=== PATIENT | female | born 1985 | race Hispanic/Latino ===

== ENCOUNTER 2023-01-05 14:41 | Emergency (ER) | payer SELFPAY ==
--- NOTE | ~2023-01-05 | US_ITS ---
EXAMINATION: US OB <=14 wk fetus w TV INDICATION: vaginal bleeding TECHNIQUE: Sonography of the pelvis was performed by transabdominal and transvaginal techniques. COMPARISON: None. RESULT: Uterus: Orientation: Anteverted. 9.1 x 4.5 x 5.1 cm. Myometrium: homogeneous echogenicity. Gestation: - Intrauterine gestational sac: Not seen. - Embryo: Not seen. Right ovary: 2.9 x 2.0 x 1.9 cm. Normal sonographic appearance with physiologic follicles. . Small ovarian cyst versus dominant follicle. Left ovary: 2.9 x 2.0 x 1.9 cm. Normal sonographic appearance with physiologic follicles. . Simple cyst versus dominant follicle. Corpus luteal cyst. Pelvis free fluid: None. IMPRESSION: No intrauterine gestational sac identified. In the setting of a positive beta hCG, this represents a of unknown location. Heterogeneous material and fluid in the endometrial cavity, likely rep resenting hemorrhage, as can be seen with in progress loss. Retained products of conception not excluded. Recommend close clinical and sonographic follow-up. Reviewed, dictated and finalized at location [facility]. IMPRESSION: No intrauterine gestational sac identified. In the setting of a positive beta h CG, this represents a of unknown location. Heterogeneous material and fluid in the endometrial cavity, likely representing hemorrhage, as can be see n with in progress loss. Retained products of conception not excluded . Recommend close clinical and sonographic follow-up.
[2023-01-05 14:51] VITALS: BP 141/73; PULSE 66; RESP 16; TEMP 37.3; O2SAT 100
[2023-01-05 15:09] LABS: Basophils Absolute Auto 0.1 K/mm3 (0.0-0.1); Basophils Percent Auto 0.8 % (0.2-1.2); Eosinophils Absolute Auto 0.2 K/mm3 (0-0.3); Eosinophils Percent Auto 3.3 % (0-4.4); Hemoglobin 12.4 g/dL (12.0-15.0); Immature Granulocyte Absolute 0.02 K/mm3 (0.00-0.031); Immature Granulocyte Percent A 0.3 % (0-0.5); Lymphocytes Absolute Auto 1.52 K/mm3 (0.9-3.2); Lymphocytes Percent Auto 24.9 % (18.3-44.2); Mean Corpuscular HGB Conc 33.5 g/dl (32-36); Mean Corpuscular Hemoglobin 30.4 pg (26-34); Mean Corpuscular Volume 90.7 fl (80-100); Monocytes Absolute Auto 0.4 K/mm3 (0.1-0.6); Monocytes Percent Auto 5.9 % (2.6-8.5); Neutrophils Percent Auto 64.8 % (45.5-73.1); Platelet Count Result 248 k/mm3 (150-375); Red Blood Count 4.08 M/mm3 (4.2-5.4); Red Cell Distribution Width 13.2 % (11.5-14.5); White Blood Count 6.1 K/mm3 (4.5-10.0)
--- NOTE | 2023-01-05 18:28 | ED.PREGNANCY ---
HPI - General Chief complaint: Vaginal Bleeding Stated complaint: vaginal bleeding during Time Seen by Provider: 01/05/23 17:48 Source: patient Mode of arrival: ambulatory Limitations: language barrier (Using [employer] translator interpreter) History of Present Illness HPI Narrative: This is a 37 year old female that presents to the ER for abnormal uterine bleeding. Reports that she has been having vaginal bleeding over the last 2 weeks. She was evaluated by her gold burnisher and found to have a positive test. She was referred to the emergency department for an ultrasound. Patient is . Denies pelvic pain or vomiting. Review of Systems Review of Systems: CONSTITUTIONAL: Denies fever GASTROINTESTINAL: Denies abdominal pain, nausea, vomiting GENITOURINARY: Denies dysuria All systems reviewed & are unremarkable except as noted in HPI and below PMFSH Past Medical History Medical History (Updated 01/05/23 @ 18:47 by Julienne Chicas PA-C) History of anemia Social History Social History (Updated 01/05/23 @ 18:30 by Julienne Chicas PA-C) Smoking status: Never smoker Exam Narrative: GENERAL: Well-appearing, well-nourished, and in no acute distress. HEAD: Normocephalic, atraumatic. EYES: EOMI. CHEST: Clear to auscultation. No respiratory distress. No wheezes rales or rhonchi HEART: Regular rate and rhythm. No murmur heard. Normal peripheral pulses. ABDOMEN: Soft, nontender, nondistended, normal active bowel sounds. EXTREMITIES: Normal range of motion. No edema. SKIN: Warm, dry, no rash. NEURO: No focal deficits. Alert and oriented x3. PSYCH: Normal mood and affect PELVIC: Normal external genitalia. Normal appearing cervix, closed. Small amount of dark red blood in the vaginal vault Course Course Emergency Course: Patient was updated on work-up and agrees with plan of care Vital Signs Vital signs: Vital Signs Temperature 99.1 F 01/05/23 14:51 Pulse Rate 66 01/05/23 14:51 Respiratory Rate 16 01/05/23 14:51 Blood Pressure 141/73 H 01/05/23 14:51 Pulse Oximetry 100 01/05/23 14:51 Oxygen Delivery Room Air 01/05/23 14:51 Temperature 99.1 F 01/05/23 14:51 Pulse Rate 66 01/05/23 14:51 Respiratory Rate 16 01/05/23 14:51 Blood Pressure 141/73 H 01/05/23 14:51 Pulse Oximetry 100 01/05/23 14:51 Oxygen Delivery Room Air 01/05/23 14:51 MDM - OB/Uterine Contractions MDM Narrative Medical decision making narrative: Patient presents to the emergency department for abnormal uterine bleeding. Was seen by her gold burnisher today and had a positive test. Prompted to be seen in the ED for an ultrasound. Her vitals are stable. Hemoglobin is normal. Patient is O+. Small amount of bleeding noted on exam. Quantitative beta-hCG 1838. Obstetrics ultrasound is without intrauterine gestational sac identified. Patient was updated on work-up and agrees with plan of care. I was unable to reach her DIRECTOR OF PATIENT SAFETY, but patient reports she will have close follow up with her. She will be given an order for repeat quantitative beta-hCG. She was given warnings to return to the ER Differential Diagnosis Differential diagnosis: Likely other (Bleeding in , miscarriage, threatened miscarriage, subchorionic hemorrhage) Lab Data Attestation: I reviewed the patient's lab results. 01/05/23 15:01 Labs: Lab Results 01/05/23 01/05/23 01/05/23 Range/Units 15:01 15:01 15:01 WBC 6.1 (4.5-10.0) K/mm3 RBC 4.08 L (4.2-5.4) M/mm3 Hgb 12.4 (12.0-15.0) g/dL Hct 37.0 (37.0-47.0) % MCV 90.7 (80-100) fl MCH 30.4 (26-34) pg MCHC 33.5 (32-36) g/dl RDW 13.2 (11.5-14.5) % Plt Count 248 (150-375) k/mm3 MPV 9.0 (7.4-10.4) fl Immature Gran % (Auto) 0.3 (0-0.5) % Neut % (Auto) 64.8 (45.5-73.1) % Lymph % (Auto) 24.9 (18.3-44.2) % [place] % (Auto) 5.9 (2.6-8.5) % Eos % (Auto) 3.3 (0-4.4) % Baso % (Auto) 0
== END 2023-01-05 19:15 | disposition home or self-care (01) ==
PROVIDERS: Emergency Medicine; Emergency Provider Physician Assistant
DX: O46.90 Antepartum hemorrhage, unspecified, unspecified trimester (principal)
CPT/HCPCS: 36415; 76801; 76817; 84702; 85025; 85461; 86850; 86900; 86901; 99284